=== PATIENT | male | born 1950 | race Caucasian/White ===

== ENCOUNTER 2018-06-25 20:22 | Observation (INO) | payer MEDICARE, OTHER ==
[2018-06-25] MEDS ORDERED: MECLIZINE HYDROCHLORIDE 12.5 MG TAB PO ONE (20:52)
[2018-06-25] MEDS ORDERED: MECLIZINE HYDROCHLORIDE 12.5 MG TAB ONE (20:55)
[2018-06-25 21:18] LABS: BASOPHILS % (AUTO) 0 % (0-3); EOSINOPHILS % (AUTO) 0 % (0-9); HEMATOCRIT 38 % (39-53); HEMOGLOBIN 12.7 gm/dl (13.5-17.7); LYMPHOCYTES % (AUTO) 5.9 % (10-50); MEAN CORPUSCULAR HEMOGLOBIN 29.7 pg (27.0-32.0); MEAN CORPUSCULAR VOLUME 90 fL (80-100); MONOCYTES % (AUTO) 3.8 % (0-12)
[2018-06-25 21:36] LABS: ALBUMIN 3.4 gm/dl (3.4-5.0); BILIRUBIN,TOTAL 1.1 mg/dl (0.2-1.0); CALCIUM 7.9 mg/dl (8.5-10.1); CARBON DIOXIDE 22.8 mEq/L (21-32); CREATININE 1.88 mg/dl (0.80-1.30); POTASSIUM 3.2 mMol/L (3.5-5.1); TOTAL PROTEIN 7.4 gm/dl (6.4-8.2); TROP I 0.019 ng/ml (0.000-0.056)
[2018-06-25] MEDS ORDERED: METOCLOPRAMIDE HYDROCHLORIDE 5 MG/ML SOL IV ONE (21:56)
[2018-06-25] MEDS ORDERED: LORAZEPAM 2 MG/ML SOL IV ONE (21:56)
[2018-06-25] MEDS ORDERED: LORAZEPAM 2 MG/ML SOL ONE (21:58)
[2018-06-25] MEDS ORDERED: METOCLOPRAMIDE HYDROCHLORIDE 5 MG/ML SOL ONE (21:58)
[2018-06-25] MEDS ORDERED: SODIUM CHLORIDE 0.9% 500 ML 500 ML IV SCH (22:00)
[2018-06-26] MEDS ORDERED: LORAZEPAM 2 MG/ML 10ML MDV 2 MG/ML VIAL IV PRN (00:39)
[2018-06-26] MEDS ORDERED: AZITHROMYCIN 500 MG PDS IV SCH (00:41)
[2018-06-26] MEDS ORDERED: METOCLOPRAMIDE HYDROCHLORIDE 5 MG/ML SOL IV SCH (00:45)
[2018-06-26] MEDS ORDERED: AZITHROMYCIN 500 MG PDS IV ONE (01:21)
[2018-06-26] MEDS: SODIUM CHLORIDE 0.9% 1000ML 1,000 ML IV SCH ×2 (02:55→14:46)
[2018-06-26] MEDS ORDERED: PANTOPRAZOLE SODIUM 40 MG ECT PO SCH (07:00)
[2018-06-26] MEDS ORDERED: OMEPRAZOLE 20 MG CAPSULE PO SCH (07:00)
[2018-06-26] MEDS: METOCLOPRAMIDE HYDROCHLORIDE 5 MG/ML SOL IV SCH ×2 (07:07→12:23)
[2018-06-26] MEDS ORDERED: ATORVASTATIN CALCIUM 80 MG TAB PO SCH (09:00)
[2018-06-26] MEDS ORDERED: GLIMEPIRIDE 2 MG TAB PO SCH (09:00)
[2018-06-26] MEDS ORDERED: LOSARTAN POTASSIUM 50 MG TAB PO SCH (09:00)
[2018-06-26 15:31] LABS: APPEARANCE,URINE Cloudy; BILIRUBIN,URINE 1+ (NEGATIVE); COLOR,URINE Yellow; GLUCOSE, URINE (UA) NEGATIVE (NEGATIVE); KETONES,URINE TRACE (NEGATIVE); LEUKOCYTE ESTERASE ,URINE NEGATIVE (NEGATIVE); NITRATE,URINE NEGATIVE (NEGATIVE); OCCULT BLOOD,URINE 2+ (NEG-TRACE); PH,URINE 5.5; UROBILINOGEN,URINE 0.2 (0.2-1.0 EU)
[2018-06-26 16:07] LABS: BASOPHILS % (AUTO) 0 % (0-3); EOSINOPHILS % (AUTO) 1 % (0-9); HEMATOCRIT 33 % (39-53); HEMOGLOBIN 11.1 gm/dl (13.5-17.7); LYMPHOCYTES % (AUTO) 23.4 % (10-50); MEAN CORPUSCULAR HEMOGLOBIN 30.2 pg (27.0-32.0); MEAN CORPUSCULAR HGB CONC 33.3 gm/dl (32.0-36.0); MEAN CORPUSCULAR VOLUME 90 fL (80-100); MONOCYTES % (AUTO) 9.5 % (0-12); NEUTROPHILS % (AUTO) 65.7 % (37-80)
[2018-06-26 16:15] VITALS: RESP 16; O2SAT 95
[2018-06-26 16:18] LABS: CALCIUM 6.9 mg/dl (8.5-10.1); CARBON DIOXIDE 24.7 mEq/L (21-32); CREATININE 2.14 mg/dl (0.80-1.30)
[2018-06-26 16:27] LABS: POTASSIUM 2.9 mMol/L (3.5-5.1)
[2018-06-26] MEDS ORDERED: POTASSIUM CHLORIDE 10 MEQ TER ONE (16:29)
[2018-06-26] MEDS ORDERED: POTASSIUM CHLORIDE 10 MEQ TER PO SCH (16:30)
[2018-06-26 16:35] LABS: EPITHELIAL CELLS 0-4 (SQUAMOUS); ICTOTEST,URINE NEGATIVE (NEGATIVE); RBC,URINE 0-2 (0-3AV/HPF)
[2018-06-26 16:36] LABS: BACTERIA 3+ (< 1+); CRYSTALS 1+ AMORPHOUS URATES (0-3 AVE/HPF)
[2018-06-26 16:49] VITALS: BP 132/71; PULSE 83; TEMP 97.6
[2018-06-26] MEDS ORDERED: ASPIRIN EC 81 MG PO SCH (21:00)
[2018-06-26] MEDS ORDERED: AMLODIPINE 5 MG TAB PO SCH (21:00)
[2018-06-26] MEDS ORDERED: METOPROLOL SUCCINATE 50 MG ER TAB PO SCH (21:00)
[2018-06-27] MEDS ORDERED: AZITHROMYCIN 500 MG PDS IV SCH (01:00)
== END 2018-06-26 16:30 | disposition home or self-care (01) | DRG 149 ==
LOC: ED 20:22 → ACUTE CARE 06-26 00:31
PROVIDERS: ADMIT Family Medicine; ATTEND Family Medicine
PROC: F01K5ZZ Range of Motion and Joint Integrity Assessment of Musculoskeletal System - Upper Back / Upper Extremity (ICD-10-PCS; principal; 2018-06-26)
PROC: F01L5ZZ Range of Motion and Joint Integrity Assessment of Musculoskeletal System - Lower Back / Lower Extremity (ICD-10-PCS; 2018-06-26)
DX: R42 Dizziness and giddiness (principal); J06.9 Acute upper respiratory infection, unspecified; E86.0 Dehydration; I50.9 Heart failure, unspecified; R11.2 Nausea with vomiting, unspecified; R05 Cough; E11.9 Type 2 diabetes mellitus without complications; R79.82 Elevated C-reactive protein (CRP); D72.829 Elevated white blood cell count, unspecified; E87.6 Hypokalemia; E83.51 Hypocalcemia
CPT/HCPCS: 36415; 70450; 71045; 80048; 80053; 81001; 82962; 83880; 84484; 85025; 87088; 93005; 96365; 96366; 96374; 96375; 99070; 99217; 99219; 99285; J0456; J2060; J2765; A9270-GY